=== PATIENT | female | born 1985 | race Caucasian/White ===

== ENCOUNTER 2018-07-10 20:41 | Emergency (ER) | payer OTHER ==
[~2018-07-10] VITALS: Ht 167.6 cm; Wt 49.9 kg
[2018-07-10 21:06] VITALS: BP_SYST 104
[2018-07-10] MEDS ORDERED: DIPH-TET-PERTUS Vaccine 0.5 ML VIAL (ADACEL) I.M. ONE (22:00)
[2018-07-10 22:19] VITALS: BP_SYST 104
== END 2018-07-10 22:19 | disposition home or self-care (01) ==
LOC: SED 20:41
DX: S61.210A Laceration without foreign body of right index finger without damage to nail, initial encounter (principal); W26.0XXA Contact with knife, initial encounter; Y93.89 Activity, other specified; Y92.89 Other specified places as the place of occurrence of the external cause; Y99.8 Other external cause status
CPT/HCPCS: 90715; 99283

== ENCOUNTER 2018-08-16 12:26 | Emergency (ER) | payer OTHER ==
[~2018-08-16] VITALS: Ht 170.2 cm; Wt 53.1 kg
[2018-08-16 12:36] VITALS: BP_SYST 124
[2018-08-16] MEDS ORDERED: LIDOCAINE 1% 10 MG/ML, 20 ML MDV INJ ONE (12:45)
[2018-08-16] MEDS ORDERED: DIPH-TET-PERTUS Vaccine 0.5 ML VIAL (ADACEL) IM ONE (12:45)
[2018-08-16] MEDS ORDERED: IBUPROFEN 800 MG TABLET PO ONE (13:15)
[2018-08-16] MEDS ORDERED: BACITRACIN 1 GM OINT TP ONE ×2 (13:30→13:40)
[2018-08-16 13:40] VITALS: BP_SYST 124
== END 2018-08-16 13:40 | disposition home or self-care (01) ==
LOC: SED 12:26
DX: L60.0 Ingrowing nail (principal)
CPT/HCPCS: 11730; 99283; J2001; 90715

== ENCOUNTER 2018-10-14 19:48 | Emergency (ER) | payer OTHER ==
[~2018-10-14] VITALS: Ht 170.2 cm; Wt 52.2 kg
[2018-10-14 20:11] VITALS: BP_SYST 121
[2018-10-14] MEDS ORDERED: KETOROLAC TROMETHAMINE 60 MG/2 ML VIAL IM ONE (21:00)
[2018-10-14] MEDS ORDERED: BACITRACIN 1 GM OINT TP ONE (21:00)
[2018-10-14 21:44] VITALS: BP_SYST 121
== END 2018-10-14 21:44 | disposition home or self-care (01) ==
LOC: SED 19:48
DX: S39.012A Strain of muscle, fascia and tendon of lower back, initial encounter (principal); S80.811A Abrasion, right lower leg, initial encounter; V03.99XA Pedestrian with other conveyance injured in collision with car, pick-up truck or van, unspecified whether traffic or nontraffic accident, initial encounter; Y93.89 Activity, other specified; Y92.410 Unspecified street and highway as the place of occurrence of the external cause; Y99.8 Other external cause status
CPT/HCPCS: 72100; 72220; 81025; 96372; 99283; J1885